=== PATIENT | female | born 1940 | race Two or more races ===

== ENCOUNTER 2018-02-04 04:49 | Emergency (ER) | payer MEDICARE, OTHER ==
[~2018-02-04] VITALS: Ht 157.5 cm; Wt 59.0 kg
[2018-02-04 04:55] VITALS: BP 135/67
--- NOTE | 2018-02-04 05:01 | Emergency Room Report ---
History of Present Illness General Chief Complaint: Dizziness Source: Patient, EMS Present Illness HPI Is a 77-year-old [place]-speaking female who was also homeless. She lives with her son but she assuming he is at work. She presents via EMS with chief complaint of dizziness. She was [facility] the [facility] at a [facility]. No trauma. Has been ongoing for the last few days. [place] weak. No fever chills but no nausea no vomiting. Standing up makes it worse. She had fallen a couple weeks ago and was taken to a hospital and was discharged. CT scan was negative. No other complaint. Denies any alcohol drugs. Allergies: Coded Allergies: No Known Allergies (Unverified , 02/04/18) Patient History Past Medical History: see triage record, old chart reviewed Past Surgical History: other Pertinent Family History: none Social History: Denies: smoking Last Menstrual Period: n.a Now: No Immunizations: other Reviewed Nursing Documentation: PMH: Agreed; PSxH: Agreed Nursing Documentation-PMH Past Medical History: No History, Except For Hx Hypertension: Yes Review of Systems Eye: Denies: eye pain, blurred vision ENT: Denies: ear pain, nose congestion, throat swelling Respiratory: Denies: cough, shortness of breath Cardiovascular: Denies: chest pain, palpitations Gastrointestinal: Denies: abdominal pain, diarrhea, nausea, vomiting Musculoskeletal: Denies: back pain, joint pain Skin: Denies: rash Neurological: Reports: dizziness; Denies: headache, numbness Endocrine: Denies: increased thirst, increased urine Hematologic/Lymphatic: Denies: easy bruising All Other Systems: negative except mentioned in HPI Physical Exam Vital Signs Date Time Temp Pulse Resp B/P (MAP) Pulse Ox O2 Delivery O2 Flow Rate FiO2 02/04/18 04:50 97.3 80 16 134/69 98 Room Air vitals normal Sp02 EP Interpretation: reviewed, normal General Appearance: well appearing, no apparent distress, alert Head: normocephalic, atraumatic Eyes: left eye other - She has ecchymosis to the lower left eye. This appeared to be old; bilateral eye PERRL, bilateral eye EOMI ENT: hearing grossly normal, normal pharynx Neck: full range of motion, supple, no meningismus Respiratory: chest non-tender, rales Cardiovascular #1: regular rate, rhythm, no murmur Gastrointestinal: normal bowel sounds, non tender, no mass, no organomegaly, no bruit, non-distended Musculoskeletal: back normal, gait/station normal, normal range of motion, swelling - 2+ pitting edema Psychiatric: mood/affect normal Skin: warm/dry Medical Decision Making Diagnostic Impression: Primary Impression: Dizziness of unknown cause Additional Impression: Acute exacerbation of CHF (congestive heart failure) Qualified Codes: I50.9 - Heart failure, unspecified ER Course She presents with dizziness. No evidence of any CVA or TIA. Exam and chest x- ray showed possible CHF. There is also a questionable right upper lobe mass. We'll get CT scan. No evidence of ACS, PE, dissection to name a few. Patient will be admitted. She may need fci placement. I contacted Dr. Rice and Dr. Shultz for admission. Lab Results Impression labs unremarkable EKG Diagnostic Results Rate: normal Rhythm: NSR ST Segments: no acute changes - LVH Rhythm Strip Diag. Results Rhythm Strip Time: 06:33 EP Interpretation: yes Rate: 80 Rhythm: NSR, no PVC's, no ectopy Chest X-Ray Diagnostic Results Chest X-Ray Diagnostic Results : Chest X-Ray Ordered: Yes # of Views/Limited/Complete: 1 View Indication: Shortness of Breath EP Interpretation: Yes Interpretation: no pneumothorax, other - CM with vasc congestion. ?RUL mass Impression: Other - CM with chf Electronically Signed by: Rodolfo Kern MD CT/MRI/US Diagnostic Results CT/MRI/US Diagnostic Results : Imaging Test Ordered: CT head Impression Neg per radiologist Last Vital Signs Date Time Temp Pulse Resp B/P (MAP) Pulse Ox O2 Delivery O2 Flow Rate FiO2 02/04/18 04:50 97.3 80 16 134/69 98 Room Air Status: improved Disposition: ADMITTED INPATIENT Condition: Serious Rodolfo Kern MD Feb 04, 2018 05:00
[2018-02-04 05:30] LABS: BASOPHILS % (AUTO) 1.8 % (0.0-2.0); EOSINOPHILS % (AUTO) 3.9 % (0.0-3.0); HEMATOCRIT 34.3 % (37.0-47.0); HEMOGLOBIN 11.3 G/DL (12.0-16.0); LYMPHOCYTES % (AUTO) 14.6 % (20.0-45.0); MEAN CORPUSCULAR VOLUME 93 FL (80-99); MONOCYTES % (AUTO) 6.4 % (1.0-10.0); NEUTROPHILS % (AUTO) 73.2 % (45.0-75.0); PLATELET COUNT 256 K/UL (150-450); RED CELL DISTRIBUTION WIDTH 12.7 % (11.6-14.8); WHITE BLOOD COUNT 6.5 K/UL (4.8-10.8)
[2018-02-04 05:39] LABS: ANION GAP 6 mmol/L (5-15); BLOOD UREA NITROGEN 24 mg/dL (7-18); CALCIUM 9.5 MG/DL (8.5-10.1); CARBON DIOXIDE 33 MMOL/L (21-32); CHLORIDE 100 MMOL/L (98-107); POTASSIUM 4.3 MMOL/L (3.5-5.1); SODIUM 139 MMOL/L (136-145)
[2018-02-04 06:07] LABS: BILIRUBIN, URINE NEGATIVE (NEGATIVE); COLOR,URINE PALE YELLOW; GLUCOSE, URINE (UA) NEGATIVE (NEGATIVE); KETONES,URINE NEGATIVE (NEGATIVE); LEUKOCYTE ESTERASE ,URINE NEGATIVE (NEGATIVE); NITRITE,URINE NEGATIVE (NEGATIVE); PH,URINE 8 (4.5-8.0); PROTEIN,URINE NEGATIVE (NEGATIVE); UROBILINOGEN,URINE NORMAL MG/DL (0.0-1.0)
[2018-02-04 06:09] LABS: APPEARANCE,URINE CLEAR
[2018-02-04] MEDS ORDERED: Isovue-370 150ml vial INJ PRN (06:30)
[2018-02-04 07:08] VITALS: BP 133/74
[2018-02-04] MEDS ORDERED: Morphine Sulfate 4mg/ml Inj (IV/IM USE ONLY) IVP PRN (08:15)
[2018-02-04] MEDS ORDERED: Miralax 17gm pkt ORAL PRN (08:15)
[2018-02-04] MEDS ORDERED: LORazepam Inj 2mg/ml 1ml IV PRN (08:15)
[2018-02-04] MEDS ORDERED: Albuterol/Ipratropium 3ml neb HHN PRN (08:15)
[2018-02-04 09:00] VITALS: BP 122/59
[2018-02-04] MEDS ORDERED: Cefepime HCl 2 GM in D5W 110 ML IV SCH (09:00)
[2018-02-04] MEDS ORDERED: Heparin 5000 units/ml inj SUBQ SCH (09:00)
[2018-02-04 11:28] VITALS: BP 119/63
[2018-02-04 11:29] VITALS: BP 119/63
--- NOTE | 2018-02-04 12:39 | Diagnostic Imaging Report ---
Indication: Altered mental status Technique: spiral acquisitions obtained through the brain. Angled axial and coronal 5 x 5 mm slices were reconstructed. No IV contrast utilized. Radiation dose was minimized using automated exposure control Total dose length product 1396.19 mGycm. CTDIvol(s) 70.38 mGy Comparison: none FINDINGS: No acute hemorrhage or edema. No mass effect or midline shift. There is age-related enlargement of the ventricles and extra axial CSF spaces. There is periventricular deep white matter ischemic change. Normal rodríguez-white differentiation. There is evidence of prior cataract surgery on the left optic globe. Visualized sinuses are unremarkable. Intact calvarium. There is a focus of encephalomalacia in the left cerebellar cortex. IMPRESSION: Chronic and age-related changes. Negative for acute intracranial bleed or mass effect Left cerebellar encephalomalacia, consistent with old infarct This agrees with the preliminary interpretation provided overnight by [facility]. The CT scanner at [facility] is accredited by the [employer] and the scans are performed using protocols designed to limit radiation exposure to as low as reasonably achievable to attain images of sufficient resolution adequate for diagnostic evaluation
--- NOTE | 2018-02-04 12:41 | Diagnostic Imaging Report ---
Indication: Shortness of breath Technique: One view of the chest Comparison: none Findings: The heart is enlarged. There is bilateral interstitial and airspace edema. Suspect also background chronic interstitial fibrotic change. There may be pleural fluid on the left. Impression: Cardiomegaly Bilateral interstitial and airspace edema, possible small left pleural effusion
--- NOTE | 2018-02-04 13:11 | Diagnostic Imaging Report ---
ndication: Chest pain Technique: IV administration nonionic contrast. Spiral acquisitions obtained from the lung bases to the lung apices. Multiplanar and 3-D reconstructions were generated. Total dose length product 472.78 mGycm. CTDIvol(s) 14.64 mGy. Dose reduction achieved using automated exposure control Comparison: none Findings: There is some image degradation due to motion artifact. The pulmonary arteries are well opacified. No intraluminal filling defects or other findings to suggest acute pulmonary embolus demonstrated. The right pulmonary artery is dilated, measuring 3 cm in diameter. The left and main pulmonary arteries are ectatic but not frankly dilated. There is no isolated right ventricular dilatation. There is lateralized massive four-chamber ventriculomegaly. The lungs demonstrate interstitial septal thickening and diffuse groundglass opacity. There is a small amount of pleural fluid bilaterally. No focal dense consolidation. No nodules or masses. No evidence of pericardial effusion. No mediastinal or hilar mass or adenopathy. There is diffuse edema of the mediastinum. The thyroid demonstrates numerous small subcentimeter nodules. No axillary or chest wall mass or adenopathy. The bones are unremarkable The included upper abdominal anatomy is unremarkable Impression: Negative for evidence of acute pulmonary embolus Massive cardiomegaly Interstitial septal thickening and diffuse groundglass opacity likely reflects pulmonary edema Dilated right main pulmonary artery, consistent with pulmonary arterial hypertension Subcentimeter thyroid nodules. No further evaluation if necessary This agrees with the preliminary interpretation provided by the emergency room physician The CT scanner at [facility] is accredited by the [employer] and the scans are performed using protocols designed to limit radiation exposure to as low as reasonably achievable to attain images of sufficient resolution adequate for diagnostic evaluation.
[2018-02-04] MEDS ORDERED: Vancomycin 1 GM in D5W 275 ML IV SCH (23:00)
--- NOTE | 2018-02-06 11:57 | Cardiology Report ---
APPROVED REPORT EKG Measurement Heart [id number] Sinus rhythm with sinus arrhythmia with occasional premature ventricular complexes Left ventricular hypertrophy with repolarization abnormality Abnormal ECG
== END 2018-02-04 11:32 | disposition short-term general hospital (02) ==
LOC: EDBD 04:49 → EMR 04:59 → EDBEDREQ 06:46 → EMR 11:32
DX: R42 Dizziness and giddiness (principal); I50.9 Heart failure, unspecified; I10 Essential (primary) hypertension
CPT/HCPCS: 36415; 70450; 71045; 71275; 80048; 81001; 83880; 84484; 85025; 87086; 93005; 96361; 96374; 99285; G0480; J1940; Q9967; 80329